=== PATIENT | male | born 1950 | race Two or more races ===

== ENCOUNTER 2022-09-28 17:12 | Emergency (ER) | payer BC, OTHER ==
[~2022-09-28] VITALS: Ht 170.2 cm; Wt 98.2 kg
[2022-09-29] VITALS: BP 150/110
[2022-09-29] MEDS ORDERED: PERCOT PO (02:04)
[2022-09-29] MEDS ORDERED: ONDA-144 PO (02:04)
== END 2022-09-29 02:21 | disposition left against medical advice (07) ==
LOC: ER 17:12
DX: G44.309 Post-traumatic headache, unspecified, not intractable (principal); V43.52XA Car driver injured in collision with other type car in traffic accident, initial encounter; Y93.89 Activity, other specified; Y92.488 Other paved roadways as the place of occurrence of the external cause; Y99.8 Other external cause status
CPT/HCPCS: 70450

== ENCOUNTER 2023-04-12 09:31 | Observation (INO) | payer OTHER ==
[~2023-04-12] VITALS: Ht 170.2 cm; Wt 102.0 kg
[~2023-04-12 09:31] MED LIST: AMLO1TAB22 PO; APIX5TAB PO; METO25TA5 PO
[2023-04-12] MEDS ORDERED: ceFAZolin 1GM/50ML 100 ML IV ONE (09:54)
[2023-04-12] MEDS ORDERED: VANCOMYCIN HCL 1000 MG VL ONE (10:01)
[2023-04-12] MEDS ORDERED: TRANEXAMIC ACID 20 ML ONE (10:03)
[2023-04-12] MEDS ORDERED: SODIUM CHLORIDE LOCK 10 ML ONE (10:31)
[2023-04-12] MEDS ORDERED: PROPOFOL 10 MG/ML 20 ML IV ONE ×2 (10:33→13:18)
[2023-04-12] MEDS ORDERED: GLYCOPYRROLATE 0.2 MG/ML 1ML VIAL ONE (10:34)
[2023-04-12] MEDS ORDERED: ONDANSETRON HCL 4 MG/2 ML VIAL ONE (10:34)
[2023-04-12] MEDS ORDERED: DexAMETHasone SOD PHOS 10MG/1ML VIAL INJ ONE (10:34)
[2023-04-12] MEDS ORDERED: KETOROLAC TROMETH 30 MG/ML 1ML VIAL ONE (10:34)
[2023-04-12] MEDS ORDERED: DexAMETHasone SOD PHOS 4 MG/1ML SDV INJ ONE (10:41)
[2023-04-12] MEDS ORDERED: ACETAMINOPHEN 325 MG TAB PO PRN (14:00)
[2023-04-12] MEDS ORDERED: oxyCODONE HCL 5MG TAB PO PRN (14:00)
[2023-04-12] MEDS ORDERED: LIDOCAINE 1%-Mpf/Epinephrine 1:200,000 30ml VIAL ONE (14:10)
[2023-04-12] MEDS: oxyCODONE HCL 5MG TAB PO PRN ×2 (15:32→22:11)
[2023-04-12] MEDS ORDERED: AMIODARONE BOLUS KIT 100 ML IV ONE (16:00)
[2023-04-12] MEDS ORDERED: METOPROLOL TARTRATE 1MG/1ML-5ML VIAL IV ONE (17:15)
[2023-04-12] MEDS ORDERED: DIGOXIN (250MCG/ML) 2 ML AMPULE IV ONE (17:15)
[2023-04-12] MEDS ORDERED: ceFAZolin 2 GM/D5W100ml 100 ML IV SCH (18:00)
[2023-04-12 19:48] VITALS: PULSE 118; RESP 18; O2SAT 92
[2023-04-12 19:54] VITALS: BP 111/71; PULSE 106; RESP 20; TEMP 98.1
[2023-04-12 20:00] VITALS: BP 111/71; PULSE 106; PULSE 137; RESP 20; TEMP 98.1; O2SAT 92
[2023-04-12] MEDS ORDERED: DILT-29 PO (20:21)
[2023-04-12] MEDS ORDERED: CARV6.2551 PO (20:21)
[2023-04-12 22:00] VITALS: BP 111/71; PULSE 106; RESP 20; TEMP 98.1; O2SAT 92
[2023-04-12] MEDS: PREGABALIN 25 MG CAP PO SCH (22:11)
[2023-04-12] MEDS: METOPROLOL TARTRATE 25 MG TAB PO SCH (22:14)
[2023-04-13] VITALS (7 sets, daily range): BP systolic 93–136; BP diastolic 66–77; PULSE 76–111; RESP 16–19; TEMP 97.4–98; O2SAT 90–94
[2023-04-13] MEDS: ACETAMINOPHEN 325 MG TAB PO SCH ×4 (00:36→12:25)
[2023-04-13] MEDS: D5W/LACTATED RINGERS 1,000 ML IV SCH ×2 (02:40→10:00)
[2023-04-13] MEDS: oxyCODONE HCL 5MG TAB PO PRN ×2 (03:04→09:46)
[2023-04-13] MEDS ORDERED: ceFAZolin 2 GM/D5W100ml 100 ML IV SCH (08:00)
[2023-04-13] MEDS: PREGABALIN 25 MG CAP PO SCH (09:46)
[2023-04-13] MEDS: METOPROLOL TARTRATE 25 MG TAB PO SCH (09:47)
[2023-04-13] MEDS ORDERED: APIXABAN 2.5 MG TAB PO SCH (10:00)
[2023-04-13] MEDS ORDERED: amLODIPine BESYLATE 5 MG TAB PO SCH (10:00)
[2023-04-13 12:18] LABS: Basophils # (auto) 0 10 ^3/uL (0-0.2); Basophils % (auto) 0.1 % (0.0-2.0); Eosinophils # (auto) 0 10 ^3/uL (0-0.8); Hematocrit 38.3 % (41.0-53.0); Hemoglobin 12.4 g/dL (13.5-17.5); Lymphocytes # (auto) 0.4 10 ^3/uL (0.4-5.4); Lymphocytes % (auto) 3.7 % (10.0-50.0); Mean Corpuscular Hemoglobin 31.1 pg (28.0-32.0); Mean Corpuscular Hgb Conc. 32.4 g/dL (32.0-36.0); Mean Corpuscular Volume 96.1 fL (80.0-100.0); Monocytes # (auto) 0.9 10 ^3/uL (0-1.3); Monocytes % (auto) 7.2 % (0.0-12.0); Neutrophils # (auto) 10.7 10 ^3/uL (1.6-8.6); Red Blood Cells 3.99 10^6/uL (4.5-5.90); Red Cell Distribution Width 13.8 % (11.8-14.3)
[2023-04-13] MEDS ORDERED: SENNA 8.6 MG TAB PO PRN (12:30)
[2023-04-13 13:19] LABS: Chloride 98 mmol/L (98-107); Potassium 5.1 mmol/L (3.5-5.1); Sodium 132 mmol/L (136-145)
[2023-04-13 13:20] LABS: Anion Gap 8.5 (5-15); Calcium 8.6 mg/dL (8.5-10.1); Carbon Dioxide 25.5 mmol/L (20-30)
[2023-04-13 13:25] LABS: BUN/Creatinine Ratio 13.4 (10.0-20.0); Blood Urea Nitrogen 11 mg/dL (9-23); Glucose 189 mg/dL (74-106)
[2023-04-13] MEDS ORDERED: METO25TA5 PO (14:12)
[2023-04-13] MEDS ORDERED: DIGOXIN (250MCG/ML) 2 ML AMPULE IV ONE (14:15)
== END 2023-04-13 17:33 | disposition home or self-care (01) ==
LOC: SUR 09:31 → OVERFLOW 13:53 → TELE-WESTW 18:21
PROVIDERS: ADMIT Hospitalist; ATTEND Hospitalist
DX: M17.0 Bilateral primary osteoarthritis of knee (principal); I48.20 Chronic atrial fibrillation, unspecified; E66.9 Obesity, unspecified; J44.9 Chronic obstructive pulmonary disease, unspecified; I25.10 Atherosclerotic heart disease of native coronary artery without angina pectoris; I42.9 Cardiomyopathy, unspecified; I10 Essential (primary) hypertension; K21.9 Gastro-esophageal reflux disease without esophagitis; Z79.899 Other long term (current) drug therapy
CPT/HCPCS: 27447; 36415; 73562; 80048; 85025; 86850; 86900; 86901; 96365; 96366; 96375; 97110; 97116; 97163; 97530; C1776; G0378; J0690; J1100; J1160; J2001; J2405; J2704; J3370; J1885

== ENCOUNTER 2023-09-13 05:55 | Inpatient (IN) | payer OTHER ==
[~2023-09-13] VITALS: Ht 170.2 cm; Wt 78.3 kg
[~2023-09-13 05:55] MED LIST changes: -AMLO1TAB22 PO; +LOSA25TA15 PO; +OMEP20TA PO
[2023-09-13] MEDS ORDERED: ceFAZolin 2 GM/D5W100ml 100 ML IV ONE (06:37)
[2023-09-13] MEDS ORDERED: TRANEXAMIC ACID ONE (06:42)
[2023-09-13] MEDS ORDERED: BUPIVACAINE W/ EPINEPH 0.5% MPF 30ML VIAL IJ ONE (06:42)
[2023-09-13] MEDS ORDERED: MORPHINE SULF PF 5 MG/10 ML VIAL ONE (06:57)
[2023-09-13] MEDS ORDERED: TETRACAINE 1% INJ 2 ML VIAL IJ ONE (07:00)
[2023-09-13] MEDS ORDERED: VANCOMYCIN HCL 1000 MG VL ONE (07:01)
[2023-09-13] MEDS ORDERED: SUCCINYLCHOLINE CHLORIDE 20 MG/ML 10ML VIAL IV ONE (07:01)
[2023-09-13] MEDS ORDERED: EPINEPHrine HCL 1 MG/1 ML AMP ONE (07:02)
[2023-09-13] MEDS ORDERED: DexAMETHasone SOD PHOS 4 MG/1ML SDV INJ ONE (07:02)
[2023-09-13] MEDS ORDERED: PROPOFOL 10 MG/ML 20 ML IV ONE (07:07)
[2023-09-13] MEDS ORDERED: ONDANSETRON HCL 4 MG/2 ML VIAL ONE (07:07)
[2023-09-13] MEDS ORDERED: MIDAZOLAM HCL 2MG/2ML 2ml VIAL (1mg/ml) ONE (07:07)
[2023-09-13] MEDS ORDERED: KETAMINE 50mg/ML 1ml syringe ONE (07:07)
[2023-09-13] MEDS ORDERED: DexAMETHasone SOD PHOS 10MG/1ML VIAL INJ ONE (07:07)
[2023-09-13] MEDS ORDERED: fentaNYL CITRATE 100 MCG/2 ML VL ONE (07:07)
[2023-09-13] MEDS ORDERED: SODIUM CHLORIDE LOCK 10 ML ONE (07:07)
[2023-09-13] MEDS ORDERED: KETOROLAC TROMETH 30 MG/ML 1ML VIAL ONE (07:07)
[2023-09-13] MEDS ORDERED: METOCLOPRAMIDE HCL 5MG/ml INJ 2ml VIAL IV PRN (08:00)
[2023-09-13] MEDS ORDERED: HYDROmorphone HCL 2 MG/ML VL/or syr IV PRN ×2 (08:00)
[2023-09-13] MEDS ORDERED: MORPHINE SULFATE INJ 2 MG/ml SYRG IV PRN (08:00)
[2023-09-13] MEDS ORDERED: oxyCODONE HCL 5MG TAB PO PRN ×2 (09:45)
[2023-09-13] MEDS ORDERED: ACETAMINOPHEN 325 MG TAB PO PRN (09:45)
[2023-09-13] MEDS ORDERED: METOPROLOL TARTRATE 25 MG TAB PO SCH (10:00)
[2023-09-13] MEDS ORDERED: APIXABAN 5 MG TAB PO SCH (10:00)
[2023-09-13] MEDS: METOPROLOL TARTRATE 50 MG TAB PO SCH ×2 (13:52→23:08)
[2023-09-13 14:25] VITALS: BP 134/70; PULSE 71; RESP 18; TEMP 98.6; O2SAT 96
[2023-09-13] MEDS: ACETAMINOPHEN 325 MG TAB PO SCH ×2 (14:34→18:26)
[2023-09-13] MEDS: D5W/LACTATED RINGERS 1,000 ML IV SCH ×2 (14:34→18:32)
[2023-09-13] MEDS: LOSARTAN POTASSIUM 25 MG TAB PO SCH (14:34)
[2023-09-13] MEDS: KETOROLAC TROMETH 30 MG/ML 1ML VIAL IV SCH ×4 (14:34→23:53)
[2023-09-13] MEDS: PREGABALIN 25 MG CAP PO SCH ×2 (14:34→23:05)
[2023-09-13] MEDS: ceFAZolin 2 GM/D5W100ml 100 ML IV SCH ×2 (16:26→23:09)
[2023-09-13 17:00] VITALS: BP 120/73; PULSE 77; RESP 22; TEMP 97.2; O2SAT 97
[2023-09-13 20:00] VITALS: BP 120/70; PULSE 108; PULSE 56; PULSE 93; RESP 16; TEMP 97.6
[2023-09-13 21:54] VITALS: BP 120/70; PULSE 56; RESP 16; TEMP 97.6; O2SAT 93
[2023-09-14] VITALS (7 sets, daily range): BP systolic 112–128; BP diastolic 65–73; PULSE 56–115; RESP 16–18; TEMP 36.5; O2SAT 92–95
[2023-09-14] MEDS: D5W/LACTATED RINGERS 1,000 ML IV SCH ×2 (05:45→15:08)
[2023-09-14] MEDS: ACETAMINOPHEN 325 MG TAB PO SCH ×3 (06:00→13:05)
[2023-09-14 06:19] LABS: Basophils # (auto) 0 10 ^3/uL (0-0.2); Eosinophils # (auto) 0 10 ^3/uL (0-0.8); Hematocrit 37.4 % (41.0-53.0); Hemoglobin 12.3 g/dL (13.5-17.5); Lymphocytes # (auto) 0.6 10 ^3/uL (0.4-5.4); Lymphocytes % (auto) 3.6 % (10.0-50.0); Mean Corpuscular Hemoglobin 31.4 pg (28.0-32.0); Mean Corpuscular Hgb Conc. 32.9 g/dL (32.0-36.0); Mean Corpuscular Volume 95.7 fL (80.0-100.0); Monocytes # (auto) 1.4 10 ^3/uL (0-1.3); Monocytes % (auto) 8.3 % (0.0-12.0); Neutrophils # (auto) 14.8 10 ^3/uL (1.6-8.6); Neutrophils % (auto) 88.1 % (37.0-80.0); Red Blood Cells 3.91 10^6/uL (4.5-5.90); Red Cell Distribution Width 16.9 % (11.8-14.3); White Blood Cell 16.8 10^3/uL (4.4-10.8)
[2023-09-14 06:22] LABS: Calcium 8.5 mg/dL (8.7-10.4); Chloride 105 mmol/L (98-107); Potassium 4.5 mmol/L (3.5-5.1); Sodium 137 mmol/L (136-145)
[2023-09-14 06:23] LABS: Anion Gap 8 (5-15); Carbon Dioxide 24 mmol/L (20-30)
[2023-09-14 06:28] LABS: BUN/Creatinine Ratio 22.2 (10.0-20.0); Blood Urea Nitrogen 14 mg/dL (9-23); Glucose 157 mg/dL (74-106)
[2023-09-14] MEDS: KETOROLAC TROMETH 30 MG/ML 1ML VIAL IV SCH ×2 (06:45→13:03)
[2023-09-14] MEDS: LOSARTAN POTASSIUM 25 MG TAB PO SCH (09:47)
[2023-09-14] MEDS: METOPROLOL TARTRATE 50 MG TAB PO SCH (09:47)
[2023-09-14] MEDS: PREGABALIN 25 MG CAP PO SCH (09:47)
[2023-09-14] MEDS ORDERED: ASPirin 81 mg TAB PO SCH (10:00)
[2023-09-14] MEDS ORDERED: APIXABAN 5 MG TAB PO SCH (10:00)
[2023-09-14] MEDS ORDERED: PANTOPRAZOLE 40 MG TAB PO SCH (10:00)
== END 2023-09-14 18:28 | disposition home or self-care (01) | DRG 470 ==
LOC: SUR 05:55 → TELE 09:41 → WEST WING 14:19
PROVIDERS: ADMIT Orthopaedic Surgery; ATTEND Orthopaedic Surgery
PROC: 0SRC0J9 Replacement of Right Knee Joint with Synthetic Substitute, Cemented, Open Approach (ICD-10-PCS; principal; 2023-09-13 07:26)
DX: M17.11 Unilateral primary osteoarthritis, right knee (principal); M21.161 Varus deformity, not elsewhere classified, right knee; I10 Essential (primary) hypertension; K21.9 Gastro-esophageal reflux disease without esophagitis; I48.0 Paroxysmal atrial fibrillation; Z82.49 Family history of ischemic heart disease and other diseases of the circulatory system; Z88.6 Allergy status to analgesic agent; Z79.899 Other long term (current) drug therapy; Z79.01 Long term (current) use of anticoagulants
CPT/HCPCS: 36415; 73560; 80048; 85025; 86850; 86900; 86901; 97163; G0378; J0171; J0330; J1100; J1885; J2250; J2405; J2704